=== PATIENT | female | born 1970 | race Caucasian/White ===

== ENCOUNTER 2016-11-25 14:32 | Emergency (ER) | payer OTHER ==
[~2016-11-25 14:32] MED LIST: AMOXICILLIN PO; AMOXICILLIN500 M1 PO; BACTRIM DS TABL1 TA1 PO; CLEOCIN PO; DERMACORT1 GM TOP; FLEXERIL10 MG PO; INDOCIN SR75 MG PO; NO MEDICATIONS; PERCOCET5/325 PO; ULTRAM PO; VOLTAREN50 MG PO
== END 2016-11-25 16:14 | disposition home or self-care (01) ==
LOC: SED 14:32
DX: J02.0 Streptococcal pharyngitis (principal); I10 Essential (primary) hypertension; Z98.51 Tubal ligation status
CPT/HCPCS: 87880; 96372; 99283; J0561